=== PATIENT | male | born 1985 | race Caucasian/White ===

== ENCOUNTER 2018-12-14 16:32 | Emergency (ER) | payer BC, MEDICAID ==
[2018-12-14 16:59] VITALS: BP 128/81; PULSE 116
[2018-12-14] MEDS ORDERED: Ondansetron 4 MG/2 ML SDV IVPUSH ONE (17:25)
[2018-12-14] MEDS ORDERED: HYDROmorphone 0.5 MG/0.5 ML Syringe IVPUSH ONE (17:25)
[2018-12-14] MEDS ORDERED: Sodium Chloride 0.9% 1,000 ML IV SCH ×2 (17:30→17:45)
--- NOTE | 2018-12-14 17:42 | EDM.PDOC ---
ED HPI GENERAL MEDICAL PROBLEM - General Chief Complaint: Abdominal Pain Stated Complaint: ABM, HARD TO STAND Time Seen by Provider: 12/14/18 17:20 Source of Information: Reports: Patient History Limitations: Reports: No Limitations - History of Present Illness INITIAL COMMENTS - FREE TEXT/NARRATIVE: 33-year-old male with decreased appetite, lower abdominal pain, fevers and chills and generalized malaise for the past 48 hours. The pain seems to be localizing more in to the right lower quadrant, and he's also developed some right testicular pain. No nausea or vomiting, no diarrhea. He has no history of abdominal surgeries. Onset: Gradual Duration: Day(s): (2 days) Location: Reports: Abdomen (Right lower quadrant) Associated Symptoms: Reports: Fever/Chills, Loss of Appetite, Other (Testicular pain, especially on the right side. No dysuria.). Denies: Chest Pain, Nausea/ Vomiting, Shortness of Breath Right Abdominal Pain Score (Numeric/FACES): 10 - Related Data Allergies Allergy/AdvReac Type Severity Reaction Status Date / Time No Known Allergies Allergy Verified 11/06/12 01:23 Home Meds: Home Meds Ibuprofen [Advil] 400 mg PO Q6H PRN 12/14/18 [History] Past Medical History HEENT History: Reports: Impaired Vision Musculoskeletal History: Reports: Other (See Below) Other Musculoskeletal History: ache all over for 2 days Neurological History: Reports: Headaches, Chronic Social & Family History - Tobacco Use Smoking Status *Q: Never Smoker - Caffeine Use Caffeine Use: Reports: Energy Drinks ED ROS GENERAL - Review of Systems Review Of Systems: See Below Constitutional: Reports: Fever, Chills, Malaise, Decreased Appetite HEENT: Reports: No Symptoms Respiratory: Denies: Shortness of Breath, Cough Cardiovascular: Denies: Chest Pain, Palpitations GI/Abdominal: Reports: Abdominal Pain. Denies: Constipation, Diarrhea, Nausea, Vomiting : Reports: Other (Testicular swelling and pain, no dysuria or urinary frequency) Neurological: Reports: No Symptoms Psychiatric: Reports: No Symptoms ED EXAM, GI/ABD - Physical Exam Exam: See Below Exam Limited By: No Limitations General Appearance: Alert, Mild Distress (Fairly uncomfortable, painful) Eyes: Bilateral: Normal Appearance (Normal without jaundice, good hydration) Head: Atraumatic Respiratory/Chest: No Respiratory Distress, Lungs Clear Cardiovascular: Regular Rate, Rhythm, Tachycardia GI/Abdominal Exam: Soft, Guarding, Rebound (Patient is tender across the lower abdomen, especially the right lower quadrant with some guarding and rebound tenderness), Tender (Male) Exam: Other (Testicles are tender to palpation, both left and right with slight swelling in the right testicle) Extremities: Normal Inspection Neurological: Alert, Oriented Psychiatric: Anxious Skin Exam: Warm, Dry Course - Vital Signs Last Recorded V/S: Last Vital Signs Temp 102 F H 12/14/18 16:58 Pulse 116 H 12/14/18 16:58 Resp 20 12/14/18 16:58 BP 128/81 12/14/18 16:58 Pulse Ox 96 12/14/18 16:58 - Orders/Labs/Meds Labs: Laboratory Tests 12/14/18 12/14/18 12/14/18 Range/Units 16:35 16:35 17:26 WBC 26.9 H (4.5-11.0) K/uL RBC 4.93 (4.30-5.90) M/uL Hgb 14.3 (12.0-15.0) g/dL Hct 43.2 (40.0-54.0) % MCV 88 (80-98) fL MCH 29 (27-31) pg MCHC 33 (32-36) % Plt Count 221 (150-400) K/uL Neut % (Auto) 82 H (36-66) % Lymph % (Auto) 9 L (24-44) % Leslie % (Auto) 8 H (2-6) % Eos % (Auto) 0 L (2-4) % Baso % (Auto) 0 (0-1) % Sodium 140 (140-148) mmol/L Potassium 3.9 (3.6-5.2) mmol/L Chloride 103 (100-108) mmol/L Carbon Dioxide 28 (21-32) mmol/L Anion Gap 9.2 (5.0-14.0) mmol/L BUN 12 (7-18) mg/dL Creatinine 1.1 (0.8-1.3) mg/dL Est Cr Clr Drug Dosing 111.05 mL/min Estimated GFR (MDRD) > 60 (>60) Glucose 112 H (74-106) mg/dL Calcium 8.8 (8.5-10.1) mg/dL Total Bilirubin 0.8 (0.2-1.0) mg/dL AST 14 L (15-37) U/L ALT 39 (12-78) U/L Alkaline Phosphatase 76 (46-116) U/L Total Protein 7.9 (6.4-8.2) g/dL Albumin 3.6 (3.4-5.0) g/dL Globulin 4.3 H (2.3-3.5) g/dL Albumin/Globulin Ratio 0.8 L (1.2-2.2) Urine Color [place] A (YELLOW) Urine Appearance Slightly cloudy A (CLEAR) Urine pH 6.0 (5.0-8.0) Ur Specific [place] >= 1.030 (1.008-1.030) Urine Protein 30 H (NEGATIVE) mg/dL Urine Glucose (UA) Negative (NEGATIVE) mg/dL Urine Ketones Negative (NEGATIVE) mg/dL Urine Occult Blood Negative (NEGATIVE) Urine Nitrite Negative (NEGATIVE) Urine Bilirubin Negative (NEGATIVE) Urine Urobilinogen 0.2 (0.2-1.0) EU/dL Ur Leukocyte Esterase Small H (NEGATIVE) Urine RBC 0-5 (0-5) Urine WBC 20-30 H (0-5) Ur Epithelial Cells Not seen Amorphous Sediment Few Urine Bacteria Few Urine Mucus Not seen Meds: Medications Discontinued Medications Generic Name Dose Route Start Last Admin Trade Name Freq PRN Reason Stop Dose Admin Hydromorphone HCl 0.5 mg 12/14/18 17:25 12/14/18 17:37 Dilaudid IVPUSH 12/14/18 17:26 0.5 mg ONETIME ONE Administration Sodium Chloride 1,000 mls @ 500 mls/hr 12/14/18 17:45 12/14/18 17:51 Normal Saline IV 500 mls/hr ASDIRECTED NATHANAEL Administration Levofloxacin/Dextrose 750 mg/ 150 mls @ 100 mls/hr 12/14/18 18:28 12/14/18 18 :40 Premix IV 12/14/18 19:57 100 mls/hr ONETIME ONE Administration Ketorolac Tromethamine 30 mg 12/14/18 18:28 12/14/18 18:38 Toradol IVPUSH 12/14/18 18:29 30 mg ONETIME ONE Administration Ondansetron HCl 4 mg 12/14/18 17:25 12/14/18 17:37 Zofran IVPUSH 12/14/18 17:26 4 mg ONETIME ONE Administration - Re-Assessments/Exams Free Text/Narrative Re-Assessment/Exam: 12/14/18 17:41 An IV was started, normal saline at 500 mL an hour, and patient was given 0.5 mg of IV Dilaudid along with 4 mg of IV Zofran. CBC CMP and UA were obtained as well as CT scan of the abdomen and pelvis without contrast. 12/14/18 18:27 White count was 27,000, CT scan of the abdomen and pelvis was negative. Reexamination showed exquisitely tender right testicle with some swelling, likely this is epididymitis with inflammation extending up into the lower abdomen. Patient will be given 750 mg of IV Levaquin, and he continued on 500 mg daily for the next 7-10 days. Also given 30 mg of IV Toradol. He will return in the next 48 hours if not improving. Departure - Departure Time of Disposition: 20:39 Disposition: Home, Self-Care 01 Clinical Impression: Epididymitis - Discharge Information Instructions: Epididymitis Referrals: PCP,None [Primary Care Provider] - Forms: ED Department Discharge Care Plan Goals: Take one dose of antibiotic every day for at least 7 days starting tomorrow. Continue with ibuprofen several times daily, stay hydrated with fluids and return to the emergency room if not improving in the next 24-48 hours.
--- NOTE | 2018-12-14 18:13 | CRLCT ---
INDICATION: And/or quadrant pain x2 days TECHNIQUE: CT abdomen and pelvis without contrast. COMPARISON: None FINDINGS: Lower chest: Pectus excavatum deformity. Liver: Unremarkable. Spleen: Unremarkable. Pancreas: Unremarkable. Gallbladder and bile ducts: Unremarkable. Kidneys: Unremarkable. No kidney or ureteral stones and no hydronephrosis. Adrenal glands: Unremarkable. GI tract: Unremarkable. Appendix is normal. Vascular structures: Unremarkable. Lymph nodes: Unremarkable. Miscellaneous: Unremarkable. No free air or significant free fluid. Pelvic Organs: Prostatomegaly with diffuse bladder wall thickening. Bones: Unremarkable for age. IMPRESSION: No definitive findings to explain the patient`s right lower quadrant pain. Normal appearing appendix. Prostatomegaly with diffuse bladder wall thickening. Dictated by Inocente Thornton MD @ 12/14/2018 6:12:01 PM Please note that all CT scans at this facility use dose modulation, iterative reconstruction, and/or weight-based dosing when appropriate to reduce radiation dose to as low as reasonably achievable. Dictated by: Inocente Thornton MD @ 12/14/2018 18:12:22 (Electronically Signed)
[2018-12-14] MEDS ORDERED: Ketorolac 30 MG/ML SDV IVPUSH ONE (18:28)
[2018-12-14] MEDS ORDERED: Levofloxacin/Dextrose 5%-Water 750 MG in Premix Bag 1 BAG IV ONE (18:28)
== END 2018-12-14 20:35 | disposition home or self-care (01) ==
LOC: JP.ED 16:32
DX: N45.1 Epididymitis (principal)
CPT/HCPCS: 36415; 74176; 80053; 81001; 85025; 96361; 96365; 96375; 99284; J1170; J1885; J1956; J2405; J7030